=== PATIENT | female | born 1950 ===

== ENCOUNTER → 2016-10-13 | Outpatient (CLI) | payer BC, OTHER ==
--- NOTE | 2016-10-14 09:42 | MM ---
Reason for exam: history of breast cancer, conservation therapy. Last mammogram was performed 1 year and 1 month ago. History: Patient is postmenopausal, has history of breast cancer at age 58, and has history of high-risk lesion on a previous biopsy at age 58. Cancelled Right US Needle Biopsy of the right breast, December 23, 2009. High risk left breast needle localization of the left breast, June 22, 2009. Malignant left mammotome panel of the left breast, May 18, 2009. Benign right mammotome panel of the right breast, May 18, 2009. Physical Findings: Nurse did not find any significant physical abnormalities on exam. MG Diagnostic Mammo w CAD SHUKRI Bilateral CC and MLO view(s) were taken. Prior study comparison: September 16, 2015, bilateral MG diagnostic mammo w CAD SHUKRI. September 15, 2014, bilateral MG screening mammo w CAD. September 09, 2013, bilateral digital screening mammo w/CAD. There are scattered fibroglandular densities. No significant new findings when compared with previous films. These results were verbally communicated with the patient and result sheet given to the patient on 10/13/16. ASSESSMENT: Benign, BI-RAD 2 RECOMMENDATION: Follow-up diagnostic mammogram of both breasts in 1 year.
== END | disposition home or self-care (01) ==
LOC: RADMAMWWP 13:19
PROVIDERS: ATTEND Family Medicine
DX: R92.8 Other abnormal and inconclusive findings on diagnostic imaging of breast (principal)

== ENCOUNTER → 2017-11-10 | Outpatient (CLI) | payer BC, OTHER ==
--- NOTE | 2017-11-13 09:30 | MM ---
Reason for exam: additional evaluation requested from prior study. Last mammogram was performed 1 year and 1 month ago. History: Patient is postmenopausal, has history of breast cancer at age 58, and has history of high-risk lesion on a previous biopsy at age 58. Cancelled Right US Needle Biopsy of the right breast, December 23, 2009. High risk left breast needle localization of the left breast, June 22, 2009. Malignant left mammotome panel of the left breast, May 18, 2009. Benign right mammotome panel of the right breast, May 18, 2009. Physical Findings: Nurse did not find any significant physical abnormalities on exam. MG 3D Diag Mammo W/Cad SHUKRI Bilateral CC and MLO view(s) were taken. Prior study comparison: October 13, 2016, bilateral MG diagnostic mammo w CAD SHUK[facility]. September 16, 2015, bilateral MG diagnostic mammo w CAD SHUKRI. The breast tissue is heterogeneously dense. This may lower the sensitivity of mammography. There are benign appearing bilateral stables masses. There are benign appearing bilateral calcifications. No suspicious abnormality. Post therapy change on the left. Post biopsy change on the right. These results were verbally communicated with the patient and result sheet given to the patient on 11/10/17. ASSESSMENT: Benign, BI-RAD 2 RECOMMENDATION: Routine screening mammogram of both breasts in 1 year.
== END | disposition home or self-care (01) ==
LOC: RADMAMWWP 06:57
PROVIDERS: ATTEND Family Medicine
DX: R92.8 Other abnormal and inconclusive findings on diagnostic imaging of breast (principal)
CPT/HCPCS: 77062; 77066

== ENCOUNTER → 2019-02-26 | Outpatient (CLI) | payer MEDICARE ==
--- NOTE | 2019-02-28 10:26 | MM ---
Reason for exam: screening (asymptomatic). Last mammogram was performed 1 year and 4 months ago. History: Patient is postmenopausal, has history of breast cancer at age 58, and has history of high-risk lesion on a previous biopsy at age 58. Cancelled Right US Needle Biopsy of the right breast, December 23, 2009. High risk left breast needle localization of the left breast, June 22, 2009. Malignant left mammotome panel of the left breast, May 18, 2009. Benign right mammotome panel of the right breast, May 18, 2009. Physical Findings: A clinical breast exam by your physician is recommended on an annual basis and results should be correlated with mammographic findings. MG 3D Screening Mammo W/Cad Bilateral CC and MLO view(s) were taken. Prior study comparison: November 10, 2017, bilateral MG 3d diag mammo w/cad SHUKRI. October 13, 2016, bilateral MG diagnostic mammo w CAD SHUKRI. There are scattered fibroglandular densities. There are benign appearing round dystrophic calcifications bilaterally. There is chronic nodularity bilaterally. There is no discrete abnormality. ASSESSMENT: Benign, BI-RAD 2 RECOMMENDATION: Routine screening mammogram of both breasts in 1 year.
== END | disposition home or self-care (01) ==
LOC: RADMAMWWP 09:09
PROVIDERS: ATTEND Nurse Practitioner Family
DX: Z12.31 Encounter for screening mammogram for malignant neoplasm of breast (principal)
CPT/HCPCS: 77063; 77067

== ENCOUNTER → 2020-03-03 | Outpatient (CLI) | payer MEDICARE ==
--- NOTE | 2020-03-03 11:04 | MM ---
Reason for exam: screening (asymptomatic). Last mammogram was performed 1 year ago. History: Patient is postmenopausal, has history of breast cancer at age 58, and has history of high-risk lesion on a previous biopsy at age 58. Cancelled Right US Needle Biopsy of the right breast, December 23, 2009. High risk left breast needle localization of the left breast, June 22, 2009. Malignant left mammotome panel of the left breast, May 18, 2009. Benign right mammotome panel of the right breast, May 18, 2009. Physical Findings: A clinical breast exam by your physician is recommended on an annual basis and results should be correlated with mammographic findings. MG 3D Screening Mammo W/Cad Bilateral CC and MLO view(s) were taken. XCCL view(s) were taken of the right breast. Prior study comparison: February 26, 2019, bilateral MG 3d screening mammo w/cad. November 10, 2017, bilateral MG 3d diag mammo w/cad SHUKRI. Finding #1: Architectural distortion in the left breast consistent with previous biopsyl Finding #2: There are typically benign calcifications in both breasts. There is a chronic nodularity bilaterally. There are grouped calcifications in the right central breast. ASSESSMENT: Incomplete: need additional imaging evaluation, BI-RAD 0 RECOMMENDATION: Special view mammogram of the right breast. If lesion persists on supplemental views, image directed ultrasound is recommended. [facility] will attempt to contact patient to return for supplemental views and ultrasound if indicated.
== END | disposition home or self-care (01) ==
LOC: RADMAMWWP 07:03
PROVIDERS: ATTEND Family Medicine
DX: Z12.31 Encounter for screening mammogram for malignant neoplasm of breast (principal)
CPT/HCPCS: 77063; 77067

== ENCOUNTER → 2020-03-09 | Outpatient (CLI) | payer MEDICARE ==
--- NOTE | 2020-03-09 12:04 | MM ---
Reason for exam: additional evaluation requested from abnormal screening. Last mammogram was performed less than 1 month ago. History: Patient is postmenopausal, has history of breast cancer at age 58, and has history of high-risk lesion on a previous biopsy at age 58. Cancelled Right US Needle Biopsy of the right breast, December 23, 2009. High risk left breast needle localization of the left breast, June 22, 2009. Malignant left mammotome panel of the left breast, May 18, 2009. Benign right mammotome panel of the right breast, May 18, 2009. Physical Findings: Nurse did not find any significant physical abnormalities on exam. MG 3D Work Up W/Cad RT CC with magnification, LM with magnification, and LM view(s) were taken of the right breast. Prior study comparison: March 03, 2020, bilateral MG 3d screening mammo w/cad. February 26, 2019, bilateral MG 3d screening mammo w/cad. The breast tissue is heterogeneously dense. This may lower the sensitivity of mammography. Finding: There are indeterminate grouped/clustered calcifications in the right breast. There is a chronic nodularity in the right breast. These results were verbally communicated with the patient and result sheet given to the patient on 03/09/20. ASSESSMENT: Suspicious, BI-RAD 4 RECOMMENDATION: Stereotactic core biopsy of the right breast. Called Dr. Hale's office with mammographic findings and has scheduled an appointment for the patient for 03/30/20 at 9:[address] Clinton. Biopsy scheduled for 03/23/20 at 8:00. PRELIMINARY REPORT CALLED AND FAXED TO DR. CLINTON ON 03/09/20.
== END | disposition home or self-care (01) ==
LOC: RADMAMWWP 07:16
PROVIDERS: ATTEND Family Medicine
DX: R92.8 Other abnormal and inconclusive findings on diagnostic imaging of breast (principal)
CPT/HCPCS: 77065; G0279; 77061

== ENCOUNTER → 2020-03-23 | Day surgery (SDC) | payer MEDICARE ==
[2020-03-23 07:26] VITALS: RESP 16
[2020-03-23 09:07] VITALS: BP 118/82; PULSE 66; TEMP 97.8
--- NOTE | 2020-03-23 15:59 | MM ---
EXAMINATION TYPE: MG stereo VAD BX RT DATE OF EXAM: 03/23/2020 COMPARISON: 03/03/2020 and 03/09/2020 CLINICAL HISTORY: 66-year-old female referred for stereotactic core needle biopsy of the right breast TECHNIQUE: Stereotactic guided core biopsy of the right breast, approximately 11:00. FINDINGS: The procedure of stereotactic guided core biopsy was explained to the patient. Benefits, a lternatives, and risks were discussed. An informed consent was then obtained. The shortness pathway for biopsy was chosen. Shortness pathway was a superior approach. I performed the localization followed by the remainder of the procedure. A vacuum assisted biopsy gun was used to obtain multiple core samples. The patient tolerated the procedure well without any immediate complication. The patient was kept in the radiology department for short stay after the procedure and then discharged home in stable condi tion. Targeted calcifications are identified in specimen mammogram. Post biopsy mammogram shows approximately 2 cm of superior migration relative to the area of concern on the preprocedure images. IMPRESSION: SUCCESSFUL, UNCOMPLICATED STEREOTACTIC GUIDED CORE BIOPSY OF 11:00 RIGHT BREAST MICROCALCIFICATIONS. NOTE 2 CM OF SUPERIOR CLIP MIGRATION. FULL PATHOLOGY RESULTS TO FOLLOW.
== END ==
LOC: RADMAMWWP 07:14
PROVIDERS: ATTEND Student in an Organized Health Care Education/Training Program
DX: N60.81 Other benign mammary dysplasias of right breast (principal); N60.11 Diffuse cystic mastopathy of right breast
CPT/HCPCS: 88305; 19081; A4648; J2001

== ENCOUNTER → 2020-04-07 | Day surgery (SDC) | payer MEDICARE ==
[~2020-04-07] MED LIST: BACITRACIN ZINC 500 UNIT/GM OINT 28.4 GM TUBE TOPICAL ONE; BUPIVACAINE (PF) 0.25% 30 ML VIAL SQ ONE; HEPARIN SODIUM,PORCINE 5,000 UNIT/ML 1 ML VIAL SQ ONE; HYDROmorphone 0.5 MG/0.5 ML SYRINGE IVP PRN; KETOROLAC 15 MG/ML 1 ML VIAL IVP ONE; LACTATED RINGERS 1,000 ML IV ONE; LACTATED RINGERS 1,000 ML IV SCH; LIDOCAINE 1% INJ 10MG/ML (20 ML MDV) ONE; LIDOCAINE 1% INJ 10MG/ML (20 ML MDV) SQ ONE; LIDOCAINE 1%-EPI 1:100,000 20 ML VIAL SQ ONE; MIDAZOLAM 2 MG/2 ML VIAL IV PRN; MIDAZOLAM 2 MG/2 ML VIAL ONE; PROPOFOL 10 MG/ML 20 ML VIAL IV ONE; Pre Op ABX Message 1 EACH MISC MISCELLANE ONE; SODIUM CHLORIDE 0.9% 100 ML with ceFAZolin 2,000 MG IV ONE; ePHEDrine SULFATE/0.9% NACL/PF 50 MG/5 ML SYRINGE IV ONE; fentaNYL (PF) 50 MCG/ML 2 ML AMP ONE
[2020-04-07] MEDS: ONDANSETRON 4 MG/2 ML VIAL IVP ONE ×2 (11:50→11:57)
[2020-04-07] MEDS: DEXAMETHASONE SOD PHOSPHATE 4 MG/ML 1 ML VIAL IV ONE ×2 (11:50→11:57)
[2020-04-07 13:56] VITALS: RESP 16
--- NOTE | 2020-04-07 16:01 | P.OP ---
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 Directly over the wire on the right breast an incision was made it was carried down around the wire being sure to encompass the entire area of concern the wire and the clip. This was excised en bloc marked with a long lateral suture short superior suture and sent to mammography which confirmed the clip and the area of calcifications within the specimen. There was an area on the inferior margin that looked and felt atypical with scarring. An extended inferior margin was taken. This was marked with a long lateral short superior suture. Hemostasis was achieved the wound was copiously irrigated and suctioned the wound was then closed with 30 subdermal Vicryl sutures followed by 4-0 running subcuticular stitch. Sterile dressing was applied patient tolerated the procedure well there are no apparent complications Plan - Discharge Summary New Discharge Prescriptions: New Docusate [Colace] 100 mg PO DAILY #10 capsule HYDROcodone/APAP 5-325MG [Crocker 5-325] 1 tab PO Q4HR PRN 3 Days #18 tab PRN Reason: Pain Discharge Medication List Docusate [Colace] 100 mg PO DAILY #10 capsule 04/07/20 [Rx] HYDROcodone/APAP 5-325MG [Crocker 5-325] 1 tab PO Q4HR PRN 3 Days #18 tab 04/07/20 [Rx] Follow up Appointment(s)/Referral(s): Deng Berger, [Doctor of Osteopathic Medicine] - 2 Weeks Activity/Diet/Wound Care/Special Instructions: Dressing can come down tomorrow. Patient may shower tomorrow and pat dry no baths for 3 weeks Keep compression bra on when possible even when sleeping for 2 weeks Discharge Disposition: HOME SELF-CARE
[2020-04-07 16:03] VITALS: TEMP 97.6
--- NOTE | 2020-04-07 16:49 | MM ---
EXAMINATION TYPE: MG pre op needle loc RT, MG surgical specimen RT DATE OF EXAM: 04/07/2020 COMPARISON: NONE CLINICAL HISTORY: 66-year-old female biopsy-proven high risk lesion, ALH, referred for needle localization and excision TECHNIQUE: Needle localization with wire placement and surgical excision of area of concern in the 11:00 right breast FINDINGS: The procedure of needle localization with wire placement and than surgical excision was explained to the patient. Benefits, alternatives, and risks were discussed. An informed consent was then obtained. The shortest pathway for procedure was chosen. Shortest pathway was a superior approach. The overlying skin was prepped and draped in usual sterile fashion. Lidocaine was used as anesthetic into the skin and subcutaneous tissue up to the level of area of concern. A 7 cm Kopan's needle was used. It was placed via a superior approach under mammographic guidance. Subsequent 90 degrees mammogram show the needle to be in satisfactory position relative to the targeted area. At this point, wire was placed and the needle was withdrawn. The wire was fixed to patient's skin. Images were marked for surgeon. Residual microcalcifications are at the distal aspect of the thick segment. There is approximately 2 cm of superior migration with the clip located at the proximal aspect of the thick segment. The patient tolerated the procedure well without any immediate complication. The patient was kept in the radiology department for short stay after the procedure and then taken to surgery for surgical excision. Targeted residual calcifications, biopsy clip, and wire are identified in specimen mammogram. The patient was kept in hospital for short stay after the procedure and then discharged home in stable condition. IMPRESSION: Successful, uncomplicated needle localization with wire placement and surgical excision of residual microcalcifications at the site of biopsy-proven ALH within the 11:00 right breast. Full pathology results to follow. Pathology Results: High Risk A. RIGHT BREAST, NEEDLE LOCALIZATION EXCISION: Fibroadenomas involved by atypical ductal hyperplasia (ADH) and lobular neoplasia (ALH/LCIS). Margins negative for ADH. Background fibrocystic changes including sclerosing adenosis with calcifications and previous biopsy site. See Comment. B. RIGHT BREAST, INFERIOR MARGIN, EXCISION: Previous biopsy site and proliferative fibrocystic changes including florid usual type ductal hyperplasia, sclerosing adenosis, cysts, apocrine metaplasia and calcifications. Recommendation Surgical consult of the right breast MTDD
[2020-04-07 17:16] VITALS: BP 139/71; PULSE 84
== END | disposition home or self-care (01) ==
LOC: OR 11:04
PROVIDERS: ATTEND Student in an Organized Health Care Education/Training Program
DX: D24.1 Benign neoplasm of right breast (principal); N60.91 Unspecified benign mammary dysplasia of right breast; R92.1 Mammographic calcification found on diagnostic imaging of breast; Z79.899 Other long term (current) drug therapy; G97.1 Other reaction to spinal and lumbar puncture
CPT/HCPCS: 19125; 86900; 86901; 86850; 88342; 88307; 88341; 76098; 19281; J2250; J1644; J1100; J2405; J0690; J2001; J3010; J1885; J2704; J1170

== ENCOUNTER → 2020-11-25 | Outpatient (CLI) | payer MEDICARE ==
--- NOTE | 2020-11-25 11:48 | MM ---
Reason for exam: follow-up at short interval from prior study. Last mammogram was performed 9 months ago. History: Patient is postmenopausal, has history of high-risk lesion on a previous biopsy at age 69, and has history of breast cancer at age 58. High risk MG pre op needle loc RT of the right breast, April 07, 2020. High risk MG stereo VAD BX RT of the right breast, March 23, 2020. Cancelled Right US Needle Biopsy of the right breast, December 23, 2009. High risk left breast needle localization of the left breast, June 22, 2009. Malignant left mammotome panel of the left breast, May 18, 2009. Benign right mammotome panel of the right breast, May 18, 2009. Physical Findings: Nurse Summary: 1cm nodule in the left breast at 10 o'clock (nurse dw). MG 3D Diag Mammo W/Cad RT CC and MLO view(s) were taken of the right breast. Prior study comparison: March 09, 2020, right breast MG 3d work up w/cad RT. March 03, 2020, bilateral MG 3d screening mammo w/cad. There are scattered fibroglandular densities. Right post operative changes. Left palpable noted on RN exam. Patient states history of trauma 1 year ago but significant language barrier limits communication. If this patient has new palpable abnormality, diagnostic left mammogram and ultrasound are recommended. Clinical correlation is necessary. Patient due in February 2021 for bilateral mammogram. These results were verbally communicated with the patient and result sheet given to the patient on 11/25/20. ASSESSMENT: Benign, BI-RAD 2 RECOMMENDATION: Return to routine screening mammogram schedule for both breasts. Back on schedule for February 2021.
== END | disposition home or self-care (01) ==
LOC: RADMAMWWP 09:16
PROVIDERS: ATTEND Family Medicine
DX: N64.89 Other specified disorders of breast (principal); Z78.0 Asymptomatic menopausal state; Z85.3 Personal history of malignant neoplasm of breast
CPT/HCPCS: 77065; G0279; 77061

== ENCOUNTER → 2020-12-14 | Outpatient (CLI) | payer MEDICARE ==
--- NOTE | 2020-12-14 10:51 | MM ---
Reason for exam: clinical finding. Last mammogram was performed 1 month ago. History: Patient is postmenopausal, has history of high-risk lesion on a previous biopsy at age 69, and has history of breast cancer at age 58. High risk MG pre op needle loc RT of the right breast, April 07, 2020. High risk MG stereo VAD BX RT of the right breast, March 23, 2020. Cancelled Right US Needle Biopsy of the right breast, December 23, 2009. High risk left breast needle localization of the left breast, June 22, 2009. Malignant left mammotome panel of the left breast, May 18, 2009. Benign right mammotome panel of the right breast, May 18, 2009. Indicated problem(s): pain in the left breast. Physical Findings: Nurse did not find any significant physical abnormalities on exam. MG 3D Diag Mammo W/Cad LT CC and MLO view(s) were taken of the left breast. Prior study comparison: November 25, 2020, right breast MG 3d diag mammo w/cad RT. March 09, 2020, right breast MG 3d work up w/cad RT. March 03, 2020, bilateral MG 3d screening mammo w/cad. February 26, 2019, bilateral MG 3d screening mammo w/cad. November 10, 2017, bilateral MG 3d diag mammo w/cad [facility]UK[facility]. There are scattered fibroglandular densities. There are multiple asymmetries that are unchanged and areas of fat necrosis. These results were verbally communicated with the patient and result sheet given to the patient on 12/14/20. ASSESSMENT: Incomplete: need additional imaging evaluation, BI-RAD 0 RECOMMENDATION: Ultrasound of the left breast. Left breast ultrasound in area of focal pain.
--- NOTE | 2020-12-14 10:52 | USB ---
Reason for exam: additional evaluation requested from abnormal screening. History: Patient is postmenopausal, has history of high-risk lesion on a previous biopsy at age 69, and has history of breast cancer at age 58. High risk MG pre op needle loc RT of the right breast, April 07, 2020. High risk MG stereo VAD BX RT of the right breast, March 23, 2020. Cancelled Right US Needle Biopsy of the right breast, December 23, 2009. High risk left breast needle localization of the left breast, June 22, 2009. Malignant left mammotome panel of the left breast, May 18, 2009. Benign right mammotome panel of the right breast, May 18, 2009. US Breast Limited LT Left limited breast ultrasound including focal area of concern, retroareolar and axilla demonstrates a 15 x 8 x 14mm oval, solid, hypoechoic lesion at 10 o'clock, corresponding with fat necrosis on mammogram, at pain and BB. These results were verbally communicated with the patient and result sheet given to the patient on 12/14/20. ASSESSMENT: Benign, BI-RAD 2 RECOMMENDATION: Return to routine screening mammogram schedule for both breasts. Back on schedule for February 2021. HAROOND
== END | disposition home or self-care (01) ==
LOC: RADMAMWWP 08:00
PROVIDERS: ATTEND Family Medicine
DX: R92.8 Other abnormal and inconclusive findings on diagnostic imaging of breast (principal); N64.1 Fat necrosis of breast; Z78.0 Asymptomatic menopausal state; Z85.3 Personal history of malignant neoplasm of breast
CPT/HCPCS: 77065; 76642; G0279; 77061

== ENCOUNTER → 2021-04-22 | Outpatient (CLI) | payer MEDICARE ==
--- NOTE | 2021-04-22 14:27 | USB ---
Reason for exam: clinical finding. History: Patient is postmenopausal, has history of high-risk lesion on a previous biopsy at age 69, and has history of breast cancer at age 58. Family history of breast cancer in mother. High risk MG pre op needle loc RT of the right breast, April 07, 2020. High risk MG stereo VAD BX RT of the right breast, March 23, 2020. Cancelled Right US Needle Biopsy of the right breast, December 23, 2009. High risk left breast needle localization of the left breast, June 22, 2009. Malignant left mammotome panel of the left breast, May 18, 2009. Benign right mammotome panel of the right breast, May 18, 2009. Physical Findings: Nurse Summary: breast pain since December 2020, 0.5cm nodule (nurse ms). US Breast LT Left complete breast ultrasound includes all four quadrants, the retroareolar region and axilla. Finding demonstrates a 1.3 x 0.8 x 1.3cm solid lesion at 10 o'clock, probable fat and a 0.6 x 0.6 x 0.6cm cystic lesion at 10 o'clock. These results were verbally communicated with the patient and result sheet given to the patient on 04/22/21. ASSESSMENT: Benign, BI-RAD 2 RECOMMENDATION: Routine screening mammogram of both breasts in 8 months. Back on schedule for December 2021. Manage patient on a clinical basis.
== END ==
LOC: RADUSWWP 09:19
PROVIDERS: ATTEND Student in an Organized Health Care Education/Training Program
DX: N64.89 Other specified disorders of breast (principal); Z80.3 Family history of malignant neoplasm of breast; Z85.3 Personal history of malignant neoplasm of breast

== ENCOUNTER → 2021-10-08 | Outpatient (CLI) | payer MEDICARE ==
--- NOTE | 2021-10-11 11:16 | MM ---
Reason for exam: screening (asymptomatic). Last mammogram was performed 10 months ago. History: Patient is postmenopausal, has history of high-risk lesion on a previous biopsy at age 69, and has history of breast cancer at age 58. Family history of breast cancer in mother. High risk MG pre op needle loc RT of the right breast, April 07, 2020. High risk MG stereo VAD BX RT of the right breast, March 23, 2020. Cancelled Right US Needle Biopsy of the right breast, December 23, 2009. High risk left breast needle localization of the left breast, June 22, 2009. Malignant left mammotome panel of the left breast, May 18, 2009. Benign right mammotome panel of the right breast, May 18, 2009. Physical Findings: A clinical breast exam by your physician is recommended on an annual basis and results should be correlated with mammographic findings. MG 3D Screening Mammo W/Cad Bilateral CC and MLO view(s) were taken. XCCL view(s) were taken of the left breast. Prior study comparison: March 03, 2020, bilateral MG 3d screening mammo w/cad. February 26, 2019, bilateral MG 3d screening mammo w/cad. There are scattered fibroglandular densities. Finding #1: Architectural distortion in the right breast consistent with known excisional changes. Finding #2: There are typically benign vascular, dystrophic, round calcifications. Previous mammotome biopsy in the right breast. There is a chronic nodularity in the left breast, stable. New 9mm oval, obscured mass 3cm from the nipple central right breast. ASSESSMENT: Incomplete: need additional imaging evaluation, BI-RAD 0 RECOMMENDATION: Ultrasound of the right breast. [facility] will attempt to contact patient to return for ultrasound.
== END | disposition home or self-care (01) ==
LOC: RADMAMWWP 14:51
PROVIDERS: ATTEND Family Medicine
DX: Z12.31 Encounter for screening mammogram for malignant neoplasm of breast (principal); Z78.0 Asymptomatic menopausal state; Z85.3 Personal history of malignant neoplasm of breast; Z80.3 Family history of malignant neoplasm of breast
CPT/HCPCS: 77063; 77067

== ENCOUNTER → 2021-10-18 | Outpatient (CLI) | payer MEDICARE ==
--- NOTE | 2021-10-18 14:58 | USB ---
Patient History: First Full-Term at age 31. Postmenopausal. Breast cancer, age 58. 04/07/2020, High risk Core Biopsy on the right side. 03/23/2020, High risk Core Biopsy on the right side. 06/22/2009, High risk Excisional Biopsy on the left side. 05/18/2009, Benign Core Biopsy on the right side. 05/18/2009, Malignant Core Biopsy on the left side. 12/23/2009, Cancelled Right US Needle Biopsy on the right side. Mother had breast cancer. Prior Study Comparison: 11/25/2020 Right Diagnostic Mammogram, [facility]. 12/14/2020 Left Diagnostic Mammogram, [facility]. 10/08/2021 Bilateral Screening Mammogram, [facility]. Findings: The periareolar of the left breast was scanned. Ultrasound finding felt to correspond to the mammogram abnormality. Overall Assessment: Benign, BI-RAD 2 Management: Screening Mammogram of both breasts in 1 year. A clinical breast exam by your physician is recommended on an annual basis and results should be correlated with mammographic findings.
== END | disposition home or self-care (01) ==
LOC: RADUSWWP 13:51
PROVIDERS: ATTEND Family Medicine
DX: R92.8 Other abnormal and inconclusive findings on diagnostic imaging of breast (principal); Z78.0 Asymptomatic menopausal state; Z80.3 Family history of malignant neoplasm of breast

== ENCOUNTER → 2022-02-21 | Outpatient (CLI) | payer MEDICARE ==
[2022-02-21 17:37] LABS: African American GFR (CKD) >90 (>60 ml/min/1.73 sqM); Blood Urea Nitrogen 15 mg/dL (7-17); Non-African American GFR(CKD) >90 (>60 ml/min/1.73 sqM)
--- NOTE | 2022-02-21 20:04 | CT ---
EXAMINATION TYPE: CT abdomen pelvis w con CT DLP: 1639.1 mGycm, Automated exposure control for dose reduction was used. DATE OF EXAM: 02/21/2022 7:08 PM COMPARISON: None CLINICAL INDICATION:Female, 71 years old with history of AB PAIN R10.32; LLQ pain TECHNIQUE: Axial CT of the abdomen and pelvis. Sagittal and coronal reformats were created on a [employer] workstation. Contrast used:100cc mL of Isovue 300 with IV Contrast, Oral contrast used: with Oral Contrast FINDINGS: LOWER CHEST: The heart is mildly enlarged for size. ABDOMEN LIVER: Diffusely hypoattenuating parenchyma. GALLBLADDER AND BILE DUCTS: Unremarkable. PANCREAS: Unremarkable. SPLEEN: Unremarkable. ADRENAL GLANDS: Unremarkable. KIDNEYS AND URETERS: No evidence of hydronephrosis or renal calculus. Right renal cyst measuring up t o 9.8 cm. Left renal cyst measuring up to 2.4 cm. PELVIS BLADDER: Unremarkable REPRODUCTIVE: Enlarged fibroid measuring up to 9.5 x 7.7 x 7.6 cm. This displaces the left ureter lat erally. The endometrium may be mildly thickened up to 8 mm. ABDOMEN & PELVIS STOMACH AND BOWEL: No evidence of bowel obstruction. Appendix is normal. PERITONEUM: No evidence of pneumoperitoneum or free fluid. VASCULATURE: No evidence of aortic aneurysm. MUSCULOSKELETAL: No acute osseous abnormalities. Scattered sclerotic foci seen throughout the osseous structures including L5, L4, L3 suggestive of a steatosis. LYMPH NODES: No gross evidence for lymphadenopathy. SOFT TISSUE/ABDOMINAL WALL: Unremarkable IMPRESSION: 1. No evidence for acute abdominal process. 2. Large fibroid within the lower/posterior uterus which mildly displaces the left ureter laterally. Consider pelvic MRI for characterization of uterus and suggestion of borderline enlarged endometrium. 3. Hepatic steatosis. 4. Colonic diverticulosis.
== END | disposition home or self-care (01) ==
LOC: RADCTMAIN 16:55
PROVIDERS: ATTEND Family Medicine
DX: R10.32 Left lower quadrant pain (principal)
CPT/HCPCS: 82565; 84520; 74177; 36415; Q9967 ×2

== ENCOUNTER → 2022-04-13 | Outpatient (CLI) | payer MEDICARE ==
--- NOTE | 2022-04-14 04:39 | MR ---
EXAMINATION TYPE: MR pelvis wo/w con DATE OF EXAM: 04/13/2022 COMPARISON: None HISTORY: Thickened endometrium, fibroid uterus. CONTRAST: Standard multiplanar, multisequence MRI departmental protocol images were obtained without contrast a nd with 9 mL intravenous Gadavist gadolinium contrast. There is a large mass involving the lower uterine segment with position in the midline and likely paco sing from the posterior wall. Uterine fundus appears normal with endometrium that measures 6 mm. The mass measures 8.3 x 7.3 cm and shows predominantly uniform enhancement. Enhancement is less than the adjacent normal myometrium. Appearance is consistent with very large fibroid. No free fluid in the pelvis. Bladder distends smoothly. The lower lumbar spine and the sacrum and pamella cyx appear intact. The cervix is not well defined. Cervix is likely distorted significantly by the la rge fibroid. No evidence of adnexal mass. No evidence of pelvic lymphadenopathy. IMPRESSION: Large midline pelvic mass consistent with fibroid arising from the posterior wall of the lower uterin e segment and not changed in size compared to the CT scan of 02/21/2022.
== END | disposition home or self-care (01) ==
LOC: RADMRIMAIN 18:48
PROVIDERS: ATTEND Obstetrics & Gynecology
DX: R19.00 Intra-abdominal and pelvic swelling, mass and lump, unspecified site (principal)
CPT/HCPCS: 72197; A9585

== ENCOUNTER → 2022-05-31 | Outpatient (CLI) | payer MEDICARE ==
[2022-05-31 14:35] LABS: Basophils # (A) 0.04 X 10*3/uL (0.00-0.10); Basophils % (A) 0.9 %; Eosinophils % (A) 4.3 %; HCT 44.6 % (37.2-46.3); HGB 14.4 g/dL (12.0-15.0); Immature Grans, Automated 0.2 %; Lymphocytes # (A) 1.49 X 10*3/uL (0.90-5.00); Lymphocytes % (A) 32.3 %; MCH 29.8 pg (27.0-32.0); MCHC 32.3 g/dL (32.0-37.0); MCV 92.3 fL (80.0-97.0); Mean Platelet Volume 11.9 fL (9.5-12.2); Monocytes # (A) 0.41 X 10*3/uL (0.20-1.00); Monocytes % (A) 8.9 %; NRBC Per 100 WBC 0 /100 WBCS (0.0-0.0); Neutrophils # (A) 2.47 X 10*3/uL (1.80-7.70); Neutrophils % (A) 53.4 %; Platelet Count 242 X 10*3/uL (140-440); RBC 4.83 X 10*6/uL (4.10-5.20); RDW 12.9 % (11.5-14.5); WBC 4.62 X 10*3/uL (4.50-10.00)
[2022-05-31 14:45] LABS: African American GFR (CKD) 102.5 (60.0-200.0); Anion Gap 9.6 mmol/L (10.00-18.00); Blood Urea Nitrogen 12.2 mg/dL (9.0-27.0); Carbon Dioxide 21.4 mmol/L (20.0-27.5); Non-African American GFR(CKD) 88.4 (60.0-200.0); Potassium 4.3 mmol/L (3.5-5.5)
== END | disposition home or self-care (01) ==
LOC: LABPAT 08:53
PROVIDERS: ATTEND Obstetrics & Gynecology
DX: Z01.812 Encounter for preprocedural laboratory examination (principal); D25.9 Leiomyoma of uterus, unspecified; R10.2 Pelvic and perineal pain
CPT/HCPCS: 80051; 82565; 84520; 85025; 87086; 93005

== ENCOUNTER 2022-06-07 05:37 | Inpatient (IN) | payer MEDICARE ==
--- NOTE | 2022-06-01 08:51 | P.HPOB ---
History of Present Illness H&P Date: 06/01/22 Chief Complaint: Pelvic Pain, Uterine Fibroids This is a 71 year old who has been experiencing pelvic pain and was noted to have thickened endometrium and a large uterine fibroid on CT exam. At this time, she was referred to me for management. A follow up ultrasound showed a uterus meausring 11 x 9 x 8 cm with a thickened endometrium and a lower uterine segment mass measuring 9cm at its largest. Ovaries were normal bilaterally. MRI was ordered to better characterize the uterine mass, which measured it at 8.3 by 7.3 cm with uniform appearance consistent with lower uterine segment fibroid on the posterior uterine wall. The mass was consistent in size from the CT in February when the MRI was done in April. Endometrial thickness was 9 mm. Endometrial biopsy and pap smear were negative. Past medical history is essentially negative and Past surgical history is significant for breast biopsy and ovarian cyst removal. Past Medical History Past Medical History: No Reported History Additional Past Medical History / Comment(s): HX OBTAINED WITH USE OF TECHNICIAN ASSISTANT FROM THE LANGUAGE LINE., STATES RIB PAIN FROM ACCIDENT. History of Any Multi-Drug Resistant Organisms: None Reported Past Surgical History: Orthopedic Surgery Additional Past Surgical History / Comment(s): august 2019- wrist surgery. left breast bx, ovarian cyst removal., states metal in her hand from surgery. Past Anesthesia/Blood Transfusion Reactions: No Reported Reaction Past Psychological History: No Psychological Hx Reported Smoking Status: Never smoker Past Alcohol Use History: None Reported Past Drug Use History: None Reported - Past Family History Mother Family Medical History: Unable to Obtain Medications and Allergies Home Medications Medication Instructions Recorded Confirmed Type Docusate [Colace] 100 mg PO DAILY #10 capsule 04/07/20 Rx HYDROcodone/APAP 5-325MG [[place] 1 tab PO Q4HR PRN 3 Days #18 tab 04/07/20 Rx 5-325] Allergies Allergy/AdvReac Type Severity Reaction Status Date / Time No Known Allergies Allergy Verified 12/14/20 08:54 Exam Focused physical exam is performed. This is a healthy-appearing woman in no apparent distress. On pelvic exam, uterus is nontender to palpation and noted to be bulky yet mobile. No adnexal masses or tenderness appreciated. Assessment and Plan Assessment: 71 year old with chronic pelvic pain and a large uterine fibroid present ing for RATLH, BSO, and Cystoscopy. Plan: Risks, benefits, and alternatives to surgery were discussed including risk of bleeding (patient willing to accept blood transfusion if needed to save her life), infection, damage to surrounding structures inlcuding bladders/ureters/bowels, and VTE postoperatively. All questions answered, handouts given, and patient desires to proceed with surgery as scheduled.
[2022-06-07] MEDS ORDERED: DEXAMETHASONE SOD PHOSPHATE 4 MG/ML 1 ML VIAL IV ONE (06:14)
[2022-06-07] MEDS ORDERED: HYDROmorphone 0.5 MG/0.5 ML SYRINGE IVP PRN (06:14)
[2022-06-07] MEDS ORDERED: ONDANSETRON 4 MG/2 ML VIAL IVP ONE (06:14)
[2022-06-07] MEDS: LACTATED RINGERS 1,000 ML IV SCH ×2 (06:22→16:43)
[2022-06-07] MEDS ORDERED: MIDAZOLAM 2 MG/2 ML VIAL IVP ONE (07:03)
[2022-06-07] MEDS ORDERED: GLYCOPYRROLATE 0.2 MG/ML 2 ML VIAL ONE (07:26)
[2022-06-07] MEDS ORDERED: SODIUM CHLORIDE 0.9% (PF) 10 ML VIAL ONE (07:26)
[2022-06-07] MEDS ORDERED: LIDOCAINE 2% INJ 20 MG/ML (2 ML VIAL) ONE (07:26)
[2022-06-07] MEDS ORDERED: PROPOFOL 10 MG/ML 20 ML VIAL IV ONE (07:26)
[2022-06-07] MEDS ORDERED: MIDAZOLAM 2 MG/2 ML VIAL ONE (07:26)
[2022-06-07] MEDS ORDERED: ROPIVACAINE 5 MG/ML 30 ML VIAL ONE (07:26)
[2022-06-07] MEDS ORDERED: KETOROLAC 15 MG/ML 1 ML VIAL ONE (07:26)
[2022-06-07] MEDS ORDERED: fentaNYL (PF) 50 MCG/ML 2 ML AMP ONE (07:26)
[2022-06-07] MEDS ORDERED: SUCCINYLCHOLINE CHLORIDE 200 MG/10 ML VIAL IV ONE (07:26)
[2022-06-07] MEDS ORDERED: NEOSTIGMINE 1 MG/ML 10 ML VIAL ONE (07:26)
[2022-06-07] MEDS ORDERED: DEXAMETHASONE SOD PHOSPHATE 4 MG/ML 1 ML VIAL ONE (07:26)
[2022-06-07] MEDS ORDERED: ROCURONIUM 10 MG/ML (5 ML VIAL) IV ONE (07:26)
[2022-06-07] MEDS ORDERED: ePHEDrine 50 MG/ML 1 ML VIAL ONE (07:26)
[2022-06-07] MEDS ORDERED: BUPIVACAINE (PF) 0.25% 30 ML VIAL SQ ONE (08:00)
[2022-06-07] MEDS ORDERED: LACTATED RINGERS 1,000 ML IV ONE ×3 (08:59→09:30)
[2022-06-07] MEDS ORDERED: ONDANSETRON 4 MG/2 ML VIAL IVP PRN (10:31)
[2022-06-07] MEDS ORDERED: SIMETHICONE 80 MG CHEWABLE PO PRN (10:31)
--- NOTE | 2022-06-07 11:20 | P.OP ---
Date of Procedure: 06/07/22 Preoperative Diagnosis: Pelvic pressure, Chronic Pelvic Pain, Uterine Fibroid Postoperative Diagnosis: Same, Large Cervical Fibroid Procedure(s) Performed: Robotic Assisted Laparoscopic Hysterectomy, Bilateral Salpingectomy, Right Oophorectomy converted to Laparotomy through Low Transverse Incision Implants: None Anesthesia: CLOVER Surgeon: Sapna Patel Boring Machine Set Up Operator Jig #1: Amish Lopez Estimated Blood Loss (ml): 1,000 IV fluids (ml): 1,550 (crystalloid and albumin) Urine output (ml): 500 (pink-tinged at the end of the case) Pathology: other (Uterus, cervix, bilateral fallopian tubes, right ovary, and large cervical fibroid) Condition: stable Disposition: floor Indications for Procedure: 71 year old with chronic pelvic pain and a large uterine fibroid presenting for surgery. Risks, benefits, and alternatives to surgery were discussed including risk of bleeding (patient willing to accept blood transfusion if needed to save her life), infection, damage to surrounding structures inlcuding bladders/ureters/bowels, need to convert to laparotomy, and VTE postoperatively. Discussed that there is a possibility that surgery may not improve her pelvic pain. All questions answered, handouts given, and patient desires to proceed with surgery as scheduled Operative Findings: Bilateral fallopian tubes with post tubal ligation surgical changes, Left ovary not present. Right ovary unremarkable. Left fallopian tube with thin adhesions to omentum. Large, 10cm posterior cervical fibroid present obscuring the normal anatomy of the uterine arteries and vesicouterine peritoneum. Description of Procedure: Prior to the beginning of the procedure, the team paused to verify the patients identity, the procedure to be performed (in accordance with the consent,) and the correct side/site. The patient was positioned appropriately. All relevant images and results were properly labeled and displayed. We addressed antibiotic prophylaxis and fluids for irrigation as applicable to this patient. Any safety precautions were addressed. The patient was taken to the operating room where general anesthesia was induced without difficulty. She was then positioned in the dorsal lithotomy position in Royce stirrups. Positioning included placing her arms at her sides. After the patient was placed in what was felt to be a ne urologically safe position, deep Trendelenburg position was tested prior to the operative procedure, to ensure that she would not move on the operating table. The patient was then prepped and draped in the normal sterile fashion for a combined abdominovaginal surgery. A Islas catheter was placed in the bladder for continuous drainage. Medium V-Care manipulator was placed in the uterus for manipulation. Attention was then placed to the abdomen. A normal length Veress needle was introduced into the abdominal cavity while tenting the abdominal wall. Low pressure was noted confirming appropriate placement. The abdomen was then insufflated to 15 mmHg. The Veress needle was removed, and an 8 mm port was placed at the supraumbilical site where the laparoscope confirmed intraperitoneal placement and no evidence of injury from the trocar placement. Visualization of the intraabdominal cavity showed the pelvic anatomy as described in the findings without evidence of adhesions. The port sites for the remainder of the case were then measured out and placed under direct visualization. On the left side, two 8 mm robotic nurse assistant ports were placed, the first being approximately 8 cm lateral to the umbilicus and the next being 8 cm lateral to this. On the right side, an 8 mm robotic port was placed 8 cm lateral to the umbilical port. The [employer] robot was then brought to the operative field in a lateral docking style to the left of the patient and the robot was docked to the ports. All robotic instruments were brought into the pelvis under direct visualization with monopolar scissors in arm #1 and vessel sealer in arm #2. The right IP was inspected, cauterized, and cut with the vessel sealer. The right fallopian tube was then cauterized and cut to the level of the uterine cornua. The right round ligament was cauterized and cut. The anterior leaf of the broad ligament was opened up to created a bladder flap on the anterior uterus. On the left side, there was no ovary. A small adhesions from left fallopian tube to omentum was taken down with the monopolar scissors. The left fallopian tube was cauterized and cut to the level of the uterine cornua. The left round ligament was cauterized and cut. The left-sided anterior leaf was opened up to finish the bladder flap. At this time, the uterine areteries were cauterized in order to begin an attempted myomectomy. An attempt was made to shell out the posterior uterine fibroid, however, visualization was limited and it was felt this remainder of the case should be done through laparotomy. All laparoscopic instruments were removed from the abdomen, the robot arms were undocked, and the robot was removed from the field. A scalpel was used to make a Pfannensteil incision. The incision was carried down to the fascia with the scalpel. The fascia was scored. Pierre scissors were used to extend the fascial incision bilaterally. Kochers were used to dissect off the underlying muscle from the fascia superiorly and inferiorly. The rectus abdominis muscles were opened in the midline and the peritoneum was entered bluntly. The O'Hang O'Espinoza retractor was placed for better visualiziation of the pelvis and the bowel was packed with moist laparotomy sponges. At this time, bleeding from the uterine arteries was indentified. An intraoperative hemoglobin of 11 was obtained at this time. The anesthesia team gave albumin in addition to crystralloid to replace volume. Paula clamps were used bilaterally to clamp the vessels. Pierre scissors were used to develop pedicles bilaterally. O-Polysorb was used to stitch the pedicles and ligate the vessels. At this time, for better visualization, the large cervical fibroid was wedged out in pieces until we had reached the level of the vagina. Paula clamps were used bilaterally across the uterosacral ligaments and isolating the cervix from the vagina. Curver Pierre Scissors were used to separate the remaining cervix and fibroid from the vagina. Both corners of the vagina were then secured with a transfixing 0-Polysorb suture. The suture was then taken across the entire vaginal cuff in a running locked fashion. Pressure was applied to the vaginal cuff. The pelvis was irrigated and hemostasis was felt to be satisfactory. For bleeding prophylaxis, FloSeal was placed along the pedicles and vaginal cuff. The O'Hang O'Espinoza retractor and all instruments were removed from the abdomen. The fascia was closed with 0-Polysorb in a running fashion. The subcutaenous fat layer was closed with 2-0 Polysorb in a running fashion. The skin was closed with 4-0 Polysorb in a running fashion along the laparotomy incision. The laparoscopic port sites were closed with 4-0 Polysorb in an interrupted fashion. Skin glue was applied to the small laparoscopic incisions. The patient tolerated the procedure well. All counts were correct times two. The patient was taken to the recovery room in a stable condition. Given a compromised view of the bilateral ureters due to the large cervical fibroid, the patient will undergo IV Pyelogram to ensure integrity of the ureters.
--- NOTE | 2022-06-07 11:40 | P.ANPRN ---
Procedure Note - Anesthesia - Nerve Block Performed Bilateral Erector Spinae Single Time Out Performed: Yes Date of Procedure: 06/07/22 Procedure Start Time: : Procedure Stop Time: :08 Location of Patient: PreOp Indication: Acute Post-Operative Pain, Requested by Surgeon Sedation Type: Sedate with meaningful contact maintained Preparation: Sterile Prep Position: Supine Needle Types: Pajunk Needle Gauge: 21 Ultrasound used to visualize needle placement: Yes Ultrasound used to observe medication spread: Yes Blood Aspirated: No Pain Paresthesia on Injection Noted: No Resistance on Injection: Normal Image Stored and Saved: Yes Events: Uneventful and Well Tolerated (ropi .5% 15cc plus ns 10cc plus dexamethasone 4mg given bilaterally at L1)
[2022-06-07 15:36] LABS: Basophils % (A) 0 %; Eosinophils % (A) 0 %; HCT 32.3 % (34.0-46.0); HGB 10.3 gm/dL (11.4-16.0); Hypochromasia Marked; Lymphocytes # (A) 0.6 k/uL (1.0-4.8); Lymphocytes % (A) 4 %; MCH 31.4 pg (25.0-35.0); MCV 98.2 fL (80.0-100.0); Mean Platelet Volume 9.5; Monocytes # (A) 0.6 k/uL (0-1.0); Monocytes % (A) 4 %; Neutrophils # (A) 12.7 k/uL (1.3-7.7); Neutrophils % (A) 91 %; Platelet Count 173 k/uL (150-450); RBC 3.29 m/uL (3.80-5.40); RDW 12.4 % (11.5-15.5)
[2022-06-07] MEDS: KETOROLAC 15 MG/ML 1 ML VIAL IVP PRN ×2 (16:19→22:13)
[2022-06-07] MEDS: SENNOSIDES-DOCUSATE SODIUM 1 EACH TAB PO SCH (20:54)
[2022-06-08] MEDS: LACTATED RINGERS 1,000 ML IV SCH ×2 (00:37→10:51)
[2022-06-08] MEDS: KETOROLAC 15 MG/ML 1 ML VIAL IVP PRN ×2 (04:15→19:56)
--- NOTE | 2022-06-08 08:13 | P.PN ---
Subjective Progress Note Date: 06/08/22 Principal diagnosis: POD#1 s/p RATLH BS, RSO converted to CINDY Patient doing well this morning. Nausea from yesterday has resolved, she is hungry for breakfast. Her pain is well controlled. She denies lightheadedness this morning, she feels well. She is not yet passing flatus. Islas catheter remains in place until after CT urogram this morning, then will d/c. Patient drinking many cups of water this morning. Objective - Vital Signs Vital signs: Vital Signs Temp 98.3 F 06/08/22 07:48 Pulse 93 06/08/22 07:48 Resp 18 06/08/22 07:51 BP 111/71 06/08/22 07:48 Pulse Ox 98 06/08/22 07:48 FiO2 Intake & Output 06/07/22 06/08/22 06/08/22 18:59 06:59 18:59 Intake Total 1510 960 250 Output Total 1655 1000 650 Balance -145 -40 -400 Weight 87.1 kg Intake: IV 1250 Intake, IV Titration 140 250 Amount Lactated Ringers 1,000 ml 250 @ 125 mls/hr IV .Q8H RIIK Rx#:[id number] Lactated Ringers 1,000 ml 140 @ 20 mls/hr IV .Q24H RIKI Rx#:[id number] Oral 120 960 Output: Urine 655 1000 650 Estimated Blood Loss 1000 Other: Voiding Method Indwelling Catheter Indwelling Catheter Indwelling Catheter - Respiratory Respiratory: bilateral: CTA - Cardiovascular Rhythm: regular Heart sounds: normal: S1, S2 - Gastrointestinal General gastrointestinal: Present: normal bowel sounds, soft - Psychiatric Psychiatric: Present: A&O x's 3, appropriate affect, intact judgment & insight - Labs CBC & Chem 7: 06/07/22 15:21 Labs: Abnormal Lab Results - Last 24 Hours (Table) 06/07/22 Range/Units 15:21 WBC 14.0 H (3.8-10.6) k/uL RBC 3.29 L (3.80-5.40) m/uL Hgb 10.3 L (11.4-16.0) gm/dL Hct 32.3 L (34.0-46.0) % Neutrophils # 12.7 H (1.3-7.7) k/uL Lymphocytes # 0.6 L (1.0-4.8) k/uL - Imaging and Cardiology CT scan - pelvis: pending Assessment and Plan Assessment: 71 year old POD#1 s/p TOOTIE BS, RSO converted to CINDY for chronic pelvic pain and large cervical fibroid Plan: - Will d/c IVF today now that patient appears to be euvolemic and has good PO intake - Will d/c Islas Catheter after urogram this AM - Encourage ambulation - Pain medications prn - Incentive spirometry reviewed with the patient, encouraged to use 10x/hour - Acute blood loss anemia: s/p 1L EBL in the OR, intraop Hgb 11, postop CBC yesterday afternoon 10.3, AM CBC pending. VSS this AM. Dispo: Anticipate discharge home on POD#2 or #3. Time with Patient: Less than 30 (15)
[2022-06-08 08:34] LABS: Basophils % (A) 0 %; Eosinophils % (A) 0 %; HCT 23.2 % (34.0-46.0); Lymphocytes # (A) 1.7 k/uL (1.0-4.8); Lymphocytes % (A) 17 %; MCH 31.1 pg (25.0-35.0); MCHC 32.9 g/dL (31.0-37.0); MCV 94.7 fL (80.0-100.0); Mean Platelet Volume 9.8; Monocytes # (A) 0.6 k/uL (0-1.0); Monocytes % (A) 6 %; Neutrophils # (A) 7.4 k/uL (1.3-7.7); Neutrophils % (A) 75 %; Platelet Count 172 k/uL (150-450); RBC 2.45 m/uL (3.80-5.40); RDW 13.1 % (11.5-15.5); WBC 9.9 k/uL (3.8-10.6)
[2022-06-08 08:56] LABS: HGB 7.6 gm/dL (11.4-16.0)
[2022-06-08] MEDS ORDERED: SODIUM FERRIC GLUCONAT-SUCROSE 125 MG in SODIUM CHLORIDE 0.9% 100 ML IVPB ONE (09:13)
--- NOTE | 2022-06-08 09:36 | CT ---
EXAMINATION TYPE: CT urogram wo/w con DATE OF EXAM: 06/08/2022 COMPARISON: 02/21/2022 HISTORY: 71-year-old female visualized ureters. Not visualized during surgery secondary to large fibr oid TECHNIQUE: Contiguous axial scanning of the abdomen and pelvis performed without and with IV Contrast , patient injected with 100 mL of Isovue 300. Delayed images through the kidneys and bladder were obt ained. Coronal/sagittal reconstructions performed. Reconstructions generated on a dedicated [employer] workstation. CT DLP: 3710.8 mGycm Automated exposure control for dose reduction was used. FINDINGS: The heart is upper limits of normal in size without pericardial effusion. Prominent dependent areas o f opacity are present in the bilateral lung bases. This should be correlated clinically to exclude pr ominent dependent atelectasis or dependent infiltrates. No focal liver lesion seen. Gallbladder borderline hydropic measuring 3.9 cm wide without any surrounding inflammation, probably due to fasting state. Clinically correlate. Portal venous system is patent. No biliary ductal dilatat ion. Adrenal glands, spleen, and pancreas show no gross abnormal. Approximately 5 hypodense lesions within the left kidney, likely cysts. Largest measuring 3.1 cm. Man y are too small for accurate CT characterization. No definite suspicious enhancing masses seen. Large partially exophytic lateral right renal cysts measuring up to 10.4 cm. Again, no suspicious rig ht renal lesion is seen. Symmetric uptake and excretion of contrast from both kidneys. No abnormal filling defect within the b ilateral renal collecting systems. There are post laparotomy changes with postsurgical inflammation along the anterior abdominal wall pa rticularly the infraumbilical region. There are scattered small foci of residual free air within the anterior omentum, within the thickened rectus sheaths, and within the subcutaneous adipose layer as w ell. The bilateral infraumbilical rectus sheaths are thickened abdomen 4.0 cm with increased density suggesting intramuscular hematomas. No dilated small bowel. No mesenteric or retroperitoneal lymphadenopathy. Retroaortic left renal vein noted. Extensive postsurgical changes within the pelvis which likely reflect interval resection of large pos terior uterine fibroid. The uterus appears to be anteverted and slightly tilted towards the left. Ext raperitoneal strandy hemorrhage is suggested both anteriorly and along the presacral region and left pelvic sidewall. Suspect some additional extraperitoneal strandy hemorrhage tracking up the right ret roperitoneum to the upper pelvis. Additional foci of air are present within the presacral region and region of the cul-de-sac. The distal third left ureter and completely opacifies. The distal most aspect prior to the ureteral o rifice is seen on axial series 18 image 79. Dense beam hardening artifact from concentrated contrast collecting in the lumen of the bladder obscures the ureter just proximal. It is again visualized on a xial image 72 with normal caliber. No abnormal dilatation or evident contrast extravasation is identi fied. A Islas catheter is in place partially decompressing the bladder. Intraluminal bladder air relating t o instrumentation. Bones: Suspect bone island or hemangioma within the L3, L4, and L5 vertebral bodies. No osseous destr uctive process. IMPRESSION: 1. ANTERIOR LOWER ABDOMINAL LAPAROTOMY CHANGES WITH INTERVAL RESECTION OF THE LARGE POSTERIOR UTERINE FIBROID. POSTSURGICAL CHANGES APPEAR FRESH WITH BILATERAL RECTUS SHEATH HEMATOMAS THICKENING THE MUS CLES UP TO 4 CM. SCATTERED FOCI OF AIR ALONG THE ANTERIOR ABDOMINAL WALL, OMENTUM, AND WITHIN THE PEL VIS. STRANDY EXTRAPERITONEAL HEMORRHAGE WITHIN THE PELVIS. 2. UTERUS APPEARS ANTEVERTED AND OBLIQUED TOWARDS THE LEFT. THE DISTAL THIRD LEFT URETER INCOMPLETELY OPACIFIES AND IS FURTHER LIMITED BY DENSE BEAM HARDENING ARTIFACT FROM CONTRAST COLLECTING IN THE BL ADDER LUMEN. HOWEVER, THERE IS NO ABNORMAL DILATATION. THE INSERTIONAL PORTION OF THE URETER IS SEEN AND THE SEGMENT LOCATED LATERAL TO THE UTERUS IS SEEN; BOTH OPACIFYING ADEQUATELY. NO EVIDENT EXTRAVA SATING CONTRAST IS IDENTIFIED. SHORT INTERVAL FOLLOW-UP CLINICALLY INDICATED. 3. FAIRLY EXTENSIVE DEPENDENT OPACITIES IN THE LUNG BASES, LIKELY POSTSURGICAL ATELECTASIS. RECOMMEND INCIDENTAL SPIROMETRY.
[2022-06-08] MEDS: ACETAMINOPHEN TAB 325 MG TAB PO PRN ×2 (10:23→16:19)
[2022-06-08] MEDS: SENNOSIDES-DOCUSATE SODIUM 1 EACH TAB PO SCH ×2 (10:23→19:55)
[2022-06-08 20:14] LABS: Basophils % (A) 0 %; Eosinophils % (A) 0 %; HGB 7.5 gm/dL (11.4-16.0); Hypochromasia Slight; Lymphocytes # (A) 1.5 k/uL (1.0-4.8); Lymphocytes % (A) 17 %; MCH 31.2 pg (25.0-35.0); MCHC 32.5 g/dL (31.0-37.0); MCV 96.1 fL (80.0-100.0); Mean Platelet Volume 9.6; Monocytes # (A) 0.4 k/uL (0-1.0); Monocytes % (A) 4 %; Neutrophils # (A) 7.1 k/uL (1.3-7.7); Neutrophils % (A) 77 %; Platelet Count 176 k/uL (150-450); RBC 2.39 m/uL (3.80-5.40); RDW 13.2 % (11.5-15.5); WBC 9.2 k/uL (3.8-10.6)
[2022-06-09 08:23] VITALS: RESP 16
[2022-06-09 08:23] LABS: ALT 16 U/L (4-34); AST 20 U/L (14-36); African American GFR (CKD) >90 (>60 ml/min/1.73 sqM); Alkaline Phosphatase 46 U/L (38-126); Anion Gap 3 mmol/L; Blood Urea Nitrogen 6 mg/dL (7-17); Calcium 7.7 mg/dL (8.4-10.2); Carbon Dioxide 25 mmol/L (22-30); Chloride 110 mmol/L (98-107); Glucose 115 mg/dL (74-99); Non-African American GFR(CKD) >90 (>60 ml/min/1.73 sqM); Potassium 3.7 mmol/L (3.5-5.1); Sodium 138 mmol/L (137-145); Total Bilirubin 0.4 mg/dL (0.2-1.3); Total Protein 5.3 g/dL (6.3-8.2)
[2022-06-09 08:27] LABS: Basophils % (A) 0 %; Eosinophils % (A) 1 %; HCT 21.7 % (34.0-46.0); Hypochromasia Slight; Lymphocytes # (A) 1.3 k/uL (1.0-4.8); Lymphocytes % (A) 18 %; MCH 30.8 pg (25.0-35.0); MCHC 32.1 g/dL (31.0-37.0); MCV 95.8 fL (80.0-100.0); Mean Platelet Volume 9.7; Monocytes # (A) 0.5 k/uL (0-1.0); Monocytes % (A) 6 %; Neutrophils # (A) 5.5 k/uL (1.3-7.7); Neutrophils % (A) 73 %; Platelet Count 157 k/uL (150-450); RBC 2.26 m/uL (3.80-5.40); RDW 13.2 % (11.5-15.5); WBC 7.5 k/uL (3.8-10.6)
[2022-06-09] MEDS: KETOROLAC 15 MG/ML 1 ML VIAL IVP PRN (10:22)
--- NOTE | 2022-06-09 11:15 | P.PN ---
Subjective Progress Note Date: 06/09/22 Principal diagnosis: POD#2 s/p RATLH BS, RSO converted to CINDY Patient doing well this morning. She does complain of a headache for which she just received toradol. She is tolerating food and drink without nausea or vomiting. Her pain is well controlled. She denies lightheadedness with walking, although she had some yesterday. She is passing flatus and having bowel movements. She is voiding without difficulty. She denies shortness of breath, dizziness, pain/swelling in legs. Vaginal bleeding has just been a very small amount of spotting since surgery. Objective - Vital Signs Vital signs: Vital Signs Temp 98.4 F 06/09/22 08:00 Pulse 102 H 06/09/22 08:00 Resp 16 06/09/22 08:00 BP 114/54 06/09/22 08:00 Pulse Ox 97 06/09/22 08:00 FiO2 Intake & Output 06/08/22 06/09/22 06/09/22 18:59 06:59 18:59 Intake Total 1200 1200 0 Output Total 2900 1250 Balance -1700 -50 0 Intake: Intake, IV Titration 500 Amount Lactated Ringers 1,000 ml 500 @ 125 mls/hr IV .Q8H RIKI Rx#:[id number] Oral 700 1200 Tube Feeding 0 Output: Urine 2900 1250 Other: Voiding Method Toilet Toilet # Voids 1 2 1 - Constitutional General appearance: Present: obese - Respiratory Respiratory: bilateral: CTA - Cardiovascular Rhythm: regular Heart sounds: normal: S1, S2 - Gastrointestinal Gastrointestinal Comment(s): Incisions all clean, dry, and intact. General gastrointestinal: Present: normal bowel sounds, soft - Psychiatric Psychiatric: Present: A&O x's 3, appropriate affect, intact judgment & insight - Labs CBC & Chem 7: 06/09/22 07:35 06/09/22 07:35 Labs: Abnormal Lab Results - Last 24 Hours (Table) 06/08/22 06/09/22 06/09/22 Range/Units 19:28 07:35 07:35 RBC 2.39 L 2.26 L (3.80-5.40) m/uL Hgb 7.5 L 7.0 L (11.4-16.0) gm/dL Hct 23.0 L 21.7 L (34.0-46.0) % Chloride 110 H (98-107) mmol/L BUN 6 L (7-17) mg/dL Glucose 115 H (74-99) mg/dL Calcium 7.7 L (8.4-10.2) mg/dL Total Protein 5.3 L (6.3-8.2) g/dL Albumin 3.0 L (3.5-5.0) g/dL Assessment and Plan Assessment: 71 year old POD#2 s/p RATLH BS, RSO converted to CINDY for chronic pelvic pain and large cervical fibroid Plan: - Given [place] language of [place], an language interpreter was used to help ensure the patient understood the conversation and instructions this morning - Continue ambulation, incentive spirometer use - Pain medications prn - Acute blood loss anemia: s/p 1L EBL in the OR > introp Hgb 11 > 10.3 > 7.6 > 7.5 > 7.0 this AM, some mild tachycardia to 102 this morning, pt c/o headache and fatigue. Will transfuse 1 unit this morning given symptomatic postoperative anemia. Will check 6h post-transfusion H+H Dispo: Anticipate discharge late this evening or tomorrow morning s/p tranfusion. Discussed restrictions at home including activity as tolerated but no lifting heavier than 6 pounds. No intercourse for 6 weeks. No driving or operative heavy machinery while using narcotics. Time with Patient: Greater than 30
[2022-06-09] MEDS: SENNOSIDES-DOCUSATE SODIUM 1 EACH TAB PO SCH ×2 (11:51→20:17)
[2022-06-09 17:58] LABS: Basophils # (A) 0.1 k/uL (0-0.2); Basophils % (A) 1 %; Eosinophils # (A) 0.1 k/uL (0-0.7); Eosinophils % (A) 1 %; Hypochromasia Slight; Lymphocytes # (A) 1.8 k/uL (1.0-4.8); Lymphocytes % (A) 24 %; MCH 30.5 pg (25.0-35.0); MCHC 31.8 g/dL (31.0-37.0); MCV 95.9 fL (80.0-100.0); Mean Platelet Volume 9.8; Monocytes # (A) 0.4 k/uL (0-1.0); Monocytes % (A) 5 %; Neutrophils # (A) 5.2 k/uL (1.3-7.7); Neutrophils % (A) 67 %; Platelet Count 201 k/uL (150-450); RBC 2.92 m/uL (3.80-5.40); RDW 13.5 % (11.5-15.5); WBC 7.7 k/uL (3.8-10.6)
[2022-06-09 17:59] LABS: HGB 8.9 gm/dL (11.4-16.0)
[2022-06-09] MEDS: LACTATED RINGERS 1,000 ML IV SCH (20:38)
[2022-06-10] MEDS: ACETAMINOPHEN TAB 325 MG TAB PO PRN (06:39)
--- NOTE | 2022-06-10 08:26 | P.PN ---
Subjective Progress Note Date: 06/10/22 Principal diagnosis: POD#3 s/p RATLH BS, RSO converted to CINDY Patient doing well this morning. She does complain of a headache that returned again this morning. She is tolerating food and drink without nausea or vomiting. Her pain is well controlled. She denies lightheadedness with walking, although she had some yesterday. She is passing flatus and having bowel movements. She is voiding without difficulty. She denies shortness of breath, dizziness, pain/swelling in legs. Vaginal bleeding has just been a very small amount of spotting since surgery. Objective - Vital Signs Vital signs: Vital Signs Temp 99.1 F 06/10/22 00:30 Pulse 95 06/10/22 00:30 Resp 16 06/10/22 00:30 BP 116/56 06/10/22 00:30 Pulse Ox 94 L 06/10/22 00:30 FiO2 Intake & Output 06/09/22 06/10/22 06/10/22 18:59 06:59 18:59 Intake Total 310 Balance 310 Intake: Tube Feeding 0 Blood Product 310 Rc As-1 Unit 310 [id number] Other: # Voids 1 1 1 # Bowel Movements 1 - Constitutional General appearance: Present: obese - Gastrointestinal General gastrointestinal: Present: soft - Psychiatric Psychiatric: Present: A&O x's 3, appropriate affect, intact judgment & insight - Labs CBC & Chem 7: 06/09/22 17:38 06/09/22 07:35 Labs: Abnormal Lab Results - Last 24 Hours (Table) 05/31/22 06/09/22 06/09/22 Range/Units 09:17 07:35 17:38 RBC 2.26 L 2.92 L (3.80-5.40) m/uL Hgb 7.0 L 8.9 L D (11.4-16.0) gm/dL Hct 21.7 L 28.0 L (34.0-46.0) % Crossmatch See Detail Assessment and Plan Assessment: 71 year old POD#3 s/p RATLH BS, RSO converted to CINDY for chronic pelvic pain and large cervical fibroid Plan: - Given apache language of Haitian, an certified court/medical interpreter was used to help ensure the patient understood the conversation and instructions this morning - Continue ambulation, incentive spirometer use - Pain medications prn - Acute blood loss anemia: s/p 1L EBL in the OR > introp Hgb 11 > 10.3 > 7.6 > 7.5 > 7.0 1u pRBCs > 8.9 Dispo: Discharge home this morning. Time with Patient: Less than 30
--- NOTE | 2022-06-10 08:33 | P.DS ---
Providers Date of admission: 06/09/22 07:35 Expected date of discharge: 06/10/22 Attending physician: Sapna Patel MD Primary care physician: Janette Hale [facility] Course: This is a 71 year old female who presented to the hospital for robotic hysterectomy, bilateraly salpingoophorectomy for chronic pelvic pain and pressure. On ultrasound it seemed she had a lower uterine segment fibroid but once the abdomen was entered the fibroid was found to be entirely cervical and very large. The case was continued laparoscopically until visualization was felt to be too suboptimal to continue and the case was convereted to a laparotomy. During removal of the cervical fibroid, anatomy of the uterine vessels was distorted and difficult to visualize which lead to a blood loss of 1,000 mL. The patient received albumin and crystalloid during the case. Because of the difficulties in visualization, a CT urogram study was performed to rule out the possibility of an occult ureteral injury which came back normal. The patient met all postoperative milestones appropriately. However, on post-operative day two Hgb dropped to 7.0 and she had periods of mild tachycardia so blood transfusion of 1 unit of packed red blood cells was recommended. Post transfusion Hgb was 8.9. The patient was ambulating, voiding, and having bowel movements without difficulty. She was tolerating PO without nausea or vomiting. She desires discharge home today on postoperative day 3. Assessment: 71 yo POD#3 s/p CARRIE, BS, RSO converted to [facility] Patient Condition at Discharge: Good Plan - Discharge Summary Discharge Rx Participant: No New Discharge Prescriptions: New Docusate [Colace] 100 mg PO DAILY PRN #30 capsule PRN Reason: Constipation Ferrous Sulfate [Feosol] 325 mg PO DAILY #30 tab Ibuprofen [Motrin] 600 mg PO Q6HR PRN #30 tab PRN Reason: Mild Pain (Scale 1 To 3) oxyCODONE HCL 5 mg PO Q6H 3 Days #12 cap Acetaminophen Tab [Tylenol] 650 mg PO Q6H PRN #30 tab PRN Reason: Mild Pain (Scale 1 To 3) Discharge Medication List Acetaminophen Tab [Tylenol] 650 mg PO Q6H PRN #30 tab 06/09/22 [Rx] Docusate [Colace] 100 mg PO DAILY PRN #30 capsule 06/09/22 [Rx] Ferrous Sulfate [Feosol] 325 mg PO DAILY #30 tab 06/09/22 [Rx] Ibuprofen [Motrin] 600 mg PO Q6HR PRN #30 tab 06/09/22 [Rx] oxyCODONE HCL 5 mg PO Q6H 3 Days #12 cap 06/09/22 [Rx] Follow up Appointment(s)/Referral(s): Sapna Patel MD [STAFF PHYSICIAN] - 2 Weeks Patient Instructions/Handouts: Anemia (DC), Hysterectomy (DC) Activity/Diet/Wound Care/Special Instructions: No heavy lifting (more than 15 pounds) for 6 weeks. No sexual intercourse for 6 weeks. Otherwise, activity as tolerated. Discharge Disposition: HOME SELF-CARE
[2022-06-10 09:52] VITALS: BP 108/55; PULSE 86; TEMP 98.5
[2022-06-10] MEDS: SENNOSIDES-DOCUSATE SODIUM 1 EACH TAB PO SCH (10:03)
== END 2022-06-10 09:46 | disposition home or self-care (01) | DRG 742 ==
LOC: OR 05:37 → 4FBP 10:31 → OR 06-09 07:35
PROVIDERS: ADMIT Obstetrics & Gynecology; ATTEND Obstetrics & Gynecology
PROC: 0UT90ZZ Resection of Uterus, Open Approach (ICD-10-PCS; principal; 2022-06-09)
PROC: 0UTC0ZZ Resection of Cervix, Open Approach (ICD-10-PCS; 2022-06-09)
PROC: 0UT74ZZ Resection of Bilateral Fallopian Tubes, Percutaneous Endoscopic Approach (ICD-10-PCS; 2022-06-09)
PROC: 0UT04ZZ Resection of Right Ovary, Percutaneous Endoscopic Approach (ICD-10-PCS; 2022-06-09)
PROC: 0DNU4ZZ Release Omentum, Percutaneous Endoscopic Approach (ICD-10-PCS; 2022-06-09)
PROC: 0UJD4ZZ Inspection of Uterus and Cervix, Percutaneous Endoscopic Approach (ICD-10-PCS; 2022-06-09)
PROC: 8E0W4CZ Robotic Assisted Procedure of Trunk Region, Percutaneous Endoscopic Approach (ICD-10-PCS; 2022-06-09)
PROC: 30233N1 Transfusion of Nonautologous Red Blood Cells into Peripheral Vein, Percutaneous Approach (ICD-10-PCS; 2022-06-10)
DX: D25.9 Leiomyoma of uterus, unspecified (principal); D62 Acute posthemorrhagic anemia; R00.0 Tachycardia, unspecified; D26.0 Other benign neoplasm of cervix uteri; G89.29 Other chronic pain; K66.0 Peritoneal adhesions (postprocedural) (postinfection); Z53.31 Laparoscopic surgical procedure converted to open procedure
CPT/HCPCS: 64999; 74178; 74400; 80053; 85025; 86850; 86900; 86901; 86920; 88307

== ENCOUNTER → 2023-11-06 | Outpatient (CLI) | payer MEDICARE ==
[2023-11-06 15:02] LABS: African American GFR (CKD) >90 (>60 ml/min/1.73 sqM); Blood Urea Nitrogen 18 mg/dL (7-17); Non-African American GFR(CKD) >90 (>60 ml/min/1.73 sqM)
--- NOTE | 2023-11-07 15:37 | CT ---
EXAMINATION TYPE: CT abdomen pelvis w con CT DLP: 1595.1 mGycm, Automated exposure control for dose reduction was used. DATE OF EXAM: 11/06/2023 4:20 PM COMPARISON: CT abdomen pelvis most recent from 06/08/2022 CLINICAL INDICATION:Female, 73 years old with history of R19.04 LLQ SWELL MASS LUMP; LLQ abdominal pa in TECHNIQUE: Axial CT abdomen pelvis w con;Sagittal and coronal reformats were created on a separate w orkstation. Contrast used:100 mL of Isovue 300 with IV Contrast, (none if empty) Oral contrast used: with Oral Contrast (none if empty) FINDINGS: LOWER CHEST: Unremarkable ABDOMEN LIVER: Unremarkable GALLBLADDER AND BILE DUCTS: Unremarkable. PANCREAS: Unremarkable. SPLEEN: Unremarkable. ADRENAL GLANDS: Unremarkable. KIDNEYS AND URETERS: No evidence of hydronephrosis or renal calculus. The ureters are unremarkable. Right and left renal cysts requiring no follow-up because they appear simple. PELVIS BLADDER: Unremarkable REPRODUCTIVE: Unremarkable. ABDOMEN & PELVIS STOMACH AND BOWEL: Stomach and duodenum are unremarkable. No evidence of bowel obstruction. PERITONEUM/RETROPERITONEUM: No evidence of pneumoperitoneum or free fluid. VASCULATURE: No evidence of aortic aneurysm. MUSCULOSKELETAL: No acute osseous abnormalities LYMPH NODES: No gross evidence for lymphadenopathy. SOFT TISSUE/ABDOMINAL WALL: Left fat containing femoral hernia suspected. IMPRESSION: 1. No acute process is appreciated. 2. Suspected fat-containing left femoral hernia
== END | disposition home or self-care (01) ==
LOC: RADCTMAIN 14:07
PROVIDERS: ATTEND Family Medicine
DX: R19.04 Left lower quadrant abdominal swelling, mass and lump (principal)
CPT/HCPCS: 82565; 84520; 74177; 36415; Q9967

== ENCOUNTER → 2024-12-26 | Outpatient (CLI) | payer MEDICARE ==
--- NOTE | 2024-12-27 08:34 | MM ---
Reason for Exam: Screening (asymptomatic). Last mammogram was performed 3 year(s) and 2 month(s) ago. Patient History: Menarche at age 18. First Full-Term at age 31. Postmenopausal. Breast cancer, left, age 56. 04/07/2020, High risk Core Biopsy on the right side. 03/23/2020, High risk Core Biopsy on the right side. 06/22/2009, High risk Excisional Biopsy on the left side. 05/18/2009, Benign Core Biopsy on the right side. 05/18/2009, Malignant Core Biopsy on the left side. 12/23/2009, Cancelled Right US Needle Biopsy on the right side. Mother had breast cancer. Prior Study Comparison: 11/25/2020 Right Diagnostic Mammogram, [facility]. 12/14/2020 Left Diagnostic Mammogram, [facility]. 10/08/2021 Bilateral Screening Mammogram, [facility]. Tissue Density: There are scattered areas of fibroglandular density. Findings: Analyzed By CAD. Right breast: There is no suspicious group of microcalcifications or new suspicious mass. Benign-appearing calcifications right breast. Left breast: Benign-appearing oil cysts. There is no suspicious group of microcalcifications or new suspicious mass. Benign-appearing calcifications left breast. Overall Assessment: Benign, BI-RAD 2 Management: Screening Mammogram of both breasts in [address] [facility] will attempt to contact patient to return for supplemental views and ultrasound if indicated. Patient should continue monthly self-breast exams. A clinical breast exam by your physician is recommended on an annual basis. This exam should not preclude additional follow-up of suspicious palpable abnormalities. Note on Darleen scores and lifetime risk: 1. A Darleen score greater than 3% is considered moderate risk. If this is the case, consider specialist referral to assess eligibility for a risk reducing agent. 2. If overall lifetime risk for the development of breast cancer is 20% or higher, the patient may qualify for future screening with alternating mammogram and breast MRI. [facility], , 12/27/2024 8:19 AM. Electronically signed and approved by: Sebastien Garcia DO
== END | disposition home or self-care (01) ==
LOC: RADMAMWWP 16:43
PROVIDERS: ATTEND Family Medicine
DX: Z12.31 Encounter for screening mammogram for malignant neoplasm of breast (principal); R92.323 Mammographic fibroglandular density, bilateral breasts; Z78.0 Asymptomatic menopausal state; Z80.3 Family history of malignant neoplasm of breast; Z85.3 Personal history of malignant neoplasm of breast
CPT/HCPCS: 77063; 77067